=== PATIENT | female | born 1970 | race African-American/Black ===

== ENCOUNTER 2016-06-15 20:30 | Emergency (ER) | payer OTHER, MEDICAID ==
[2016-06-15] MEDS ORDERED: DILAUDID 1 MG/ML AMP ONE (21:46)
== END 2016-06-15 22:30 | disposition home or self-care (01) ==
LOC: ER 20:30
DX: S39.012A Strain of muscle, fascia and tendon of lower back, initial encounter (principal)
CPT/HCPCS: 72100; 96372; 99284; J1170